=== PATIENT | male | born 1985 | race African-American/Black ===

== ENCOUNTER 2017-12-29 17:03 | Emergency (ER) | payer OTHER ==
[2017-12-29 17:37] VITALS: BP 154/69; PULSE 83; TEMP 97.9; BMI 24.9
[2017-12-29] MEDS ORDERED: ACETAMINOPHEN 500 MG TABLET (FP) PO ONE (18:12)
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
[2017-12-29] MEDS ORDERED: ACETAMINOPHEN 500 MG TABLET (FP) ONE (18:21)
[2017-12-29 18:41] LABS: PH,URINE 5.5 (4.5-8); URINE APPEARANCE Clear; URINE BILIRUBIN Negative (NEGATIVE); URINE BLOOD Negative (NEGATIVE); URINE GLUCOSE (UA) Negative (NEGATIVE); URINE KETONE Negative (NEGATIVE); URINE LEUK ESTERASE Negative (NEGATIVE); URINE NITRITE Negative (NEGATIVE); URINE PROTEIN Negative (NEGATIVE)
[2017-12-29 18:51] LABS: URINE COLOR YELLOW
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
== END 2017-12-29 21:37 | disposition home or self-care (01) ==
LOC: FER 17:03
DX: S13.4XXA Sprain of ligaments of cervical spine, initial encounter (principal); V47.5XXA Car driver injured in collision with fixed or stationary object in traffic accident, initial encounter; Y93.89 Activity, other specified; Y92.410 Unspecified street and highway as the place of occurrence of the external cause; R07.89 Other chest pain; S70.01XA Contusion of right hip, initial encounter
CPT/HCPCS: 71046-TC-FY; 72125-TC; 73523-TC-FY; 81003; 99281-25